=== PATIENT | female | born 1935 | race Caucasian/White ===

== ENCOUNTER 2022-02-14 11:25 | Outpatient (REF) | payer OTHER, SELFPAY ==
[2022-02-14 11:34] VITALS: BMI 34.7
[2022-02-14 11:35] VITALS: BP 133/63; PULSE 71; RESP 16; TEMP 36.2; O2SAT 95
== END 2022-02-14 11:26 | disposition home or self-care (01) ==
LOC: HO.MS 11:25
PROVIDERS: PCP Internal Medicine Geriatric Medicine; Visit Provider Ophthalmology
PROC: (CPT 66821; principal; 2022-02-14 12:50)
DX: H26.492 Other secondary cataract, left eye (principal); H40.1132 Primary open-angle glaucoma, bilateral, moderate stage; H18.413 Arcus senilis, bilateral; Z96.1 Presence of intraocular lens; E78.00 Pure hypercholesterolemia, unspecified; Z79.899 Other long term (current) drug therapy
CPT/HCPCS: 66821